=== PATIENT | female | born 1945 | race Two or more races ===

== ENCOUNTER 2016-12-24 18:21 | Emergency (ER) | payer SELFPAY ==
[~2016-12-24] VITALS: Ht 152.4 cm; Wt 68.0 kg
[2016-12-24 18:54] VITALS: BP 193/73
[2016-12-24 19:32] LABS: Basophils # (auto) 0 uL; Basophils % (auto) 0.1 % (0.0-2.0); CONDITION Y; Eosinophils # (auto) 0.1 uL; Eosinophils % (auto) 0.6 % (0.0-7.0); Hematocrit 42.9 % (36.0-46.0); Hemoglobin 14.7 g/dL (12.2-16.2); Lymphocytes % (auto) 15.9 % (10.0-50.0); Mean Corpuscular Hemoglobin 30.7 pg (28.0-32.0); Mean Corpuscular Hgb Conc. 34.2 g/dL (32.0-36.0); Mean Corpuscular Volume 89.8 fL (80.0-100.0); Mean Platelet Volume 8.6 fL (6.9-10.8); Monocytes # (auto) 0.1 uL; Monocytes % (auto) 0.5 % (0.0-12.0); Neutrophils # (auto) 10.4 uL; Neutrophils % (auto) 82.9 % (37.0-80.0); Platelet Count (auto) 206 10^3/uL (140-450); Red Cell Distribution Width 13.1 % (11.8-14.3); White Blood Cell 12.6 10^3/uL (4.4-10.8)
[2016-12-24 19:59] LABS: Lactic Acid w/Reflex 2.2 mmol/L (0.4-2.0)
[2016-12-24 20:01] LABS: Albumin 3.5 g/dL (3.4-5.0); Alkaline Phosphatase 131 U/L (45-117); Anion Gap 9 (5-15); Aspartate Aminotransferase 13 U/L (15-37); BUN/Creatinine Ratio 12.1; Bilirubin, Total 0.4 mg/dL (0.2-1.0); Blood Urea Nitrogen 19 mg/dL (7-18); Calcium 8.4 mg/dL (8.5-10.1); Carbon Dioxide 23 mmol/L (21-32); Chloride 103 mmol/L (98-107); GFR African American 42 mL/min; GFR Non-African American 35 mL/min; Glucose 258 mg/dL (74-106); Potassium 4.1 mmol/L (3.5-5.1); Sodium 135 mmol/L (136-145); Total Protein 7.9 g/dL (6.4-8.2)
[2016-12-24 20:04] LABS: REFLEX LACTIC ACID YES OR NO YES
== END 2016-12-25 02:25 | disposition left against medical advice (07) ==
LOC: ER 18:29
DX: R11.2 Nausea with vomiting, unspecified (principal); M79.1 Myalgia; Z53.21 Procedure and treatment not carried out due to patient leaving prior to being seen by health care provider
CPT/HCPCS: 36415; 71010; 80053; 83605; 84484; 85025; 87040; 93005